=== PATIENT | male | born 1960 | race Caucasian/White ===

== ENCOUNTER 2023-03-14 13:46 | Emergency (ER) | payer OTHER, SELFPAY ==
[2023-03-14 13:58] VITALS: BP 146/92; PULSE 61; RESP 16; TEMP 36.8; O2SAT 95; BMI 28.2
--- NOTE | 2023-03-14 15:01 | ED.NURSE ---
LEFT eye irrigated with approximately 500cc warm normal saline. Pt unable to tolerate any more washing. Dr. Cazares notified.
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
== END 2023-03-14 15:13 | disposition other institution (70) ==
PROVIDERS: Emergency Provider Family Medicine
DX: T26.62XA Corrosion of cornea and conjunctival sac, left eye, initial encounter (principal); T54.2X1A Toxic effect of corrosive acids and acid-like substances, accidental (unintentional), initial encounter
CPT/HCPCS: 99284

== ENCOUNTER 2024-02-27 15:17 | Outpatient (CLI) | payer OTHER, SELFPAY | END 2024-02-27 15:18 | disposition home or self-care (01) | PROVIDERS: PCP Registered Nurse; Visit Provider Registered Nurse | DX: E78.5 Hyperlipidemia, unspecified (principal); Z12.5 Encounter for screening for malignant neoplasm of prostate | CPT/HCPCS: 80053; 80061; G0103 ==

== ENCOUNTER 2024-03-02 15:43 | Outpatient (CLI) | payer OTHER, SELFPAY ==
--- NOTE | 2024-03-02 16:00 | CRLHL7_ITS ---
For Patients: As a result of the Century Cures Act, medical imaging exams and procedure reports are released immediately into your electronic medical record. You may view this report before your referring provider. If you have questions, please contact your health care provider. INDICATION: Leg pain and swelling. TECHNIQUE: Ultrasound venous duplex lower left extremity. Compression venous exam was performed using guevara-scale, color Doppler, and spectral Doppler analysis. COMPARISON: None. FINDINGS: Deep veins: Sonographic imaging demonstrates the left common femoral, deep femoral, superficial femoral, popliteal, posterior tibial, and the contralateral right common femoral veins to be fully compressible with normal color Doppler blood flow. Superficial veins: Greater saphenous vein is noncompressible at the proximal calf and partially compressible at the mid and distal calf. No popliteal cyst. IMPRESSION: 1. No sign of deep venous thrombosis in the left lower extremity. 2. Superficial venous thrombosis in the left greater saphenous vein extending from the proximal to distal calf. Dictated by Neeraj Dang MD @ 03/03/2024 3:58:59 AM (Electronically Signed)
== END 2024-03-02 15:44 | disposition home or self-care (01) ==
LOC: US 15:45
PROVIDERS: PCP Registered Nurse; Visit Provider Registered Nurse
DX: M79.89 Other specified soft tissue disorders (principal); I82.812 Embolism and thrombosis of superficial veins of left lower extremity; M79.605 Pain in left leg
CPT/HCPCS: 93971

== ENCOUNTER 2024-03-19 06:11 | Outpatient (CLI) | payer OTHER, SELFPAY ==
--- NOTE | 2024-03-19 07:57 | P.ANES_ITS ---
Anesthesia Charges Start Date/Time Anesthesia Start Date: 03/19/24 Anesthesia Start Time: 07:23 Stop Date/Time Anesthesia Stop Date: 03/19/24 Anesthesia Stop Time: 07:53 Coding CPT Codes CPT Codes: FELIPE LWBerta INTST NDSC NOS - 70691 ([id number]) P2 - PATIENT W/MILD SYST DISEASE, QX - METAL LEAF LAYER SVC W/ MD MED DIRECTION, QK - CREDIT VERIFIER 2-4 CNCRNT ANES PROC
--- NOTE | 2024-03-19 07:57 | W.ANESCHARGE ---
Anesthesia Charges Start Date/Time Anesthesia Start Date: 03/19/24 Anesthesia Start Time: 07:23 Stop Date/Time Anesthesia Stop Date: 03/19/24 Anesthesia Stop Time: 07:53 Coding CPT Codes CPT Codes: FELIPE LWBerta INTST NDSC NOS - 57620 ([id number]) P2 - PATIENT W/MILD SYST DISEASE, QX - PARK SUPERINTENDENT SVC W/ MD MED DIRECTION, QK - SOLAR SALES ENERGY ADVISOR 2-4 CNCRNT ANES PROC
--- NOTE | 2024-03-19 08:23 | P.ANES_ITS ---
Anesthesia Charges Start Date/Time Anesthesia Start Date: 03/19/24 Anesthesia Start Time: 07:23 Stop Date/Time Anesthesia Stop Date: 03/19/24 Anesthesia Stop Time: 07:53 Coding CPT Codes CPT Codes: FELIPE LWR INTST NDSC NOS - 94081 ([id number]) QK - TREE PLANTER 2-4 CNCRNT FELIPE PROC, QX - MICROFILM PROCESSOR SVC W/ MD MED DIRECTION, P2 - PATIENT W/MILD SYST DISEASE
--- NOTE | 2024-03-19 08:23 | W.ANESCHARGE ---
Anesthesia Charges Start Date/Time Anesthesia Start Date: 03/19/24 Anesthesia Start Time: 07:23 Stop Date/Time Anesthesia Stop Date: 03/19/24 Anesthesia Stop Time: 07:53 Coding CPT Codes CPT Codes: FELIPE LWR INTST NDSC NOS - [id number] ([id number]) QK - ANALYTICAL CONSULTANT 2-4 CNCRNT FELIPE PROC, QX - MAGNET VALVE ASSEMBLER SVC W/ MD MED DIRECTION, P2 - PATIENT W/MILD SYST DISEASE
== END 2024-03-19 06:12 | disposition home or self-care (01) ==
LOC: OP CLINIC 06:12
PROVIDERS: PCP Registered Nurse; Visit Provider Internal Medicine
DX: Z12.11 Encounter for screening for malignant neoplasm of colon (principal); D12.5 Benign neoplasm of sigmoid colon
CPT/HCPCS: 00811; 45380; 88305; J2704